=== PATIENT | female | born 1965 | race Caucasian/White ===

== ENCOUNTER 2017-01-13 17:37 | Inpatient (IN) | payer OTHER ==
[~2017-01-13] VITALS: Ht 165.1 cm; Wt 56.9 kg
[~2017-01-13 17:37] MED LIST: CEPH500C PO; HYDR-1231 PO; HYDR118S10 PO
[2017-01-13] MEDS ORDERED: NS IV 1000 ML 1,000 ML IV ONE (18:17)
[2017-01-13] MEDS ORDERED: ONDANSETRON 4 MG/2 ML (SDV) Z0FRAN IVP ONE ×2 (18:30→20:15)
[2017-01-13 18:32] LABS: BASOPHILS % (AUTO) 0 % (0-10); EOSINOPHILS % (AUTO) 0 % (0-10); LYMPHOCYTES # (AUTO) 1.1 X 10^3 (1.0-4.0); LYMPHOCYTES % (AUTO) 9 % (12-44); MEAN CORPUSCULAR HEMOGLOBIN 28 PG (25-34); MEAN CORPUSCULAR HGB CONC 34 G/DL (32-36); MEAN CORPUSCULAR VOLUME 83 FL (80-99); MONOCYTES # (AUTO) 0.5 X 10^3 (0.0-1.0); MONOCYTES % (AUTO) 4 % (0-12); NEUTROPHILS # (AUTO) 11.4 X 10^3 (1.8-7.8); NEUTROPHILS % (AUTO) 87 % (42-75); PLATELET COUNT 394 10^3/uL (130-400); RED BLOOD COUNT 4.61 10^6/uL (4.35-5.85); RED CELL DISTRIBUTION WIDTH 13.3 % (10.0-14.5); WHITE BLOOD COUNT 13.1 10^3/uL (4.3-11.0)
--- NOTE | 2017-01-13 18:35 | ED Abdominal Pain ---
General Chief Complaint: Abdominal/GI Problems Stated Complaint: NAUSEA/VOMITING Nursing Triage Note: AMBULATED TO ROOM 07 WITH COMPLAINTS OF EPIGASTRIC PAIN WITH N/V TODAY. STATES SHE HAD THIS ON SAT BUT IT WENT AWAY. Sepsis Screen: No Definite Risk Source of Information: Patient Exam Limitations: No Limitations History of Present Illness Time Seen By Provider: 18:10 Initial Comments Here with complaint of epigastric pain associated with multiple episodes of nausea and vomiting today. Had the same thing a few days ago and it went away. Does not seem to be associated with food. She is not amenable to eat or drink anything today. Denies diarrhea or dysuria. She has not had pain like this before. Complains of a pressure or fullness feeling. Timing/Duration: 12 Hours Severity/Quality: Moderate, Severe Location: Epigastric Radiation: No Radiation Activities at Onset: None Associated Symptoms: No Back Pain, No Chest Pain, No Fever/Chills, Nausea/ Vomiting, No Shortness of Air, No Swelling/Mass in Abdomen, No Weakness Allergies and Home Medications Allergies Coded Allergies: No Known Drug Allergies (Unverified , 06/09/12) Review of Systems Constitutional: see HPI, No chills, No fever EENTM: No Symptoms Reported Respiratory: Denies Cough, Denies Shortness of Air Cardiovascular: Denies Chest Pain, Denies Palpitations Gastrointestinal: Abdominal Pain, Denies Constipated, Denies Diarrhea, Nausea, Vomiting Genitourinary: No Symptoms Reported Musculoskeletal: no symptoms reported Skin: no symptoms reported Psychiatric/Neurological: No Symptoms Reported All Other Systems Reviewed Negative Unless Noted: Yes Past Xaxvxua-Kbexud-Osskfe Hx Patient Social History Alcohol Use: Denies Use Recreational Drug Use: No Smoking Status: Current Everyday Smoker Recent Foreign Travel: No Contact w/Someone Who Travel: No Recent Infectious Disease Expo: No Immunizations Up To Date Tetanus Booster (TDap): Less than 5yrs Seasonal Allergies Seasonal Allergies: Yes Surgeries HX Surgeries: Yes Surgeries: Section Respiratory Hx Respiratory Disorders: No Cardiovascular Hx Cardiac Disorders: No Neurological Hx Neurological Disorders: No Reproductive System Hx Reproductive Disorders: No [employer] History: Menopausal Genitourinary Hx Genitourinary Disorders: Yes Genitourinary Disorders: Kidney Stones Gastrointestinal Hx Gastrointestinal Disorders: No Musculoskeletal Hx Musculoskeletal Disorders: Yes (FX L PATELLA 01/15/14) Musculoskeletal Disorders: Fractures Endocrine Hx Endocrine Disorders: No HEENT HX ENT Disorders: No Cancer Hx Cancer: No Psychosocial Hx Psychiatric Problems: No Integumentary HX Skin/Integumentary Disorder: No Blood Transfusions Hx Blood Disorders: No Reviewed Nursing Assessment Reviewed/Agree w Nursing PMH: Yes Family Medical History Significant Family History: No Pertinent Family Hx Physical Exam Vital Signs VS - Last 72 Hours, by Label 01/13/17 17:45 Temp 98.0 Pulse 62 Resp 18 B/P (MAP) 131/87 Pulse Ox 98 Capillary Refill : Less Than 3 Seconds General Appearance: WD/WN, no apparent distress HEENT: PERRL/EOMI, pharynx normal Neck: full range of motion, supple Respiratory: lungs clear, normal breath sounds Cardiovascular: no murmur, bradycardia Peripheral Pulses: 2+ Dorsalis Pedis (R), 2+ Left Dors-Pedis (L), 2+ Radial Pulses (R), 2+ Radial Pulses (L) Gastrointestinal: non tender, soft Extremities: non-tender, normal inspection Back: normal inspection, no CVA tenderness, no vertebral tenderness Neurologic/Psychiatric: alert, oriented x 3 Skin: normal color, warm/dry Focused Exam Lactic Acid Level Laboratory Tests Test 01/13/17 21:00 Progress/Results/Core Measures Results/Orders Lab Results Laboratory Tests Test 01/13/17 18:00 01/13/17 18:25 01/13/17 21:00 Range/Units White Blood Count 13.1 H 4.3-11.0 10^3/uL Red Blood Count 4.61 4.35-5.85 10^6/uL Hemoglobin 13.0 11.5-16.0 G/DL Hematocrit 38 35-52 % Mean Corpuscular Volume 83 80-99 FL Mean Corpuscular Hemoglobin 28 25-34 PG Mean Corpuscular Hemoglobin Concent 34 32-36 G/DL Red Cell Distribution Width 13.3 10.0-14.5 % Platelet Count 394 130-400 10^3/uL Mean Platelet Volume 10.0 7.4-10.4 FL Neutrophils (%) (Auto) 87 H 42-75 % Lymphocytes (%) (Auto) 9 L 12-44 % Monocytes (%) (Auto) 4 0-12 % Eosinophils (%) (Auto) 0 0-10 % Basophils (%) (Auto) 0 0-10 % Neutrophils # (Auto) 11.4 H 1.8-7.8 X 10^3 Lymphocytes # (Auto) 1.1 1.0-4.0 X 10^3 Monocytes # (Auto) 0.5 0.0-1.0 X 10^3 Eosinophils # (Auto) 0.0 0.0-0.3 10^3/uL Basophils # (Auto) 0.0 0.0-0.1 10^3/uL Sodium Level 142 135-145 MMOL/L Potassium Level 3.7 3.6-5.0 MMOL/L Chloride Level 105 98-107 MMOL/L Carbon Dioxide Level 24 21-32 MMOL/L Anion Gap 13 5-14 MMOL/L Blood Urea Nitrogen 13 7-18 MG/DL Creatinine 0.73 0.60-1.30 MG/DL Estimat Glomerular Filtration Rate > 60 BUN/Creatinine Ratio 18 Glucose Level 128 H 70-105 MG/DL Calcium Level 9.8 8.5-10.1 MG/DL Total Bilirubin 0.3 0.1-1.0 MG/DL Aspartate Amino Transf (AST/SGOT) 19 5-34 U/L Alanine Aminotransferase (ALT/SGPT) 16 0-55 U/L Alkaline Phosphatase 105 40-136 U/L Troponin I < 0.30 <0.30 NG/ML Total Protein 7.7 6.4-8.2 G/DL Albumin 4.3 3.2-4.5 G/DL Amylase Level 93 25-125 U/L Lipase 18 8-78 U/L Urine Color YELLOW Urine Clarity SLIGHTLY CLOUDY Urine pH 6 5-9 Urine Specific Bradford 1.020 1.016-1.022 Urine Protein 2+ H NEGATIVE Urine Glucose (UA) NEGATIVE NEGATIVE Urine Ketones NEGATIVE NEGATIVE Urine Nitrite POSITIVE H NEGATIVE Urine Bilirubin NEGATIVE NEGATIVE Urine Urobilinogen NORMAL NORMAL MG/DL Urine Leukocyte Esterase 1+ H NEGATIVE Urine RBC (Auto) 2+ H NEGATIVE Urine RBC 2-5 H /HPF Urine WBC 25-50 H /HPF Urine Squamous Epithelial Cells 0-2 /HPF Urine Crystals NONE /LPF Urine Bacteria LARGE H /HPF Urine Casts NONE /LPF Urine Mucus NEGATIVE /LPF Urine Culture Indicated YES Urine Opiates Screen NEGATIVE NEGATIVE Urine Oxycodone Screen NEGATIVE NEGATIVE Urine Methadone Screen NEGATIVE NEGATIVE Urine Propoxyphene Screen NEGATIVE NEGATIVE Urine Barbiturates Screen NEGATIVE NEGATIVE Ur Tricyclic Antidepressants Screen NEGATIVE NEGATIVE Urine Phencyclidine Screen NEGATIVE NEGATIVE Urine Amphetamines Screen POSITIVE H NEGATIVE Urine Methamphetamines Screen NEGATIVE NEGATIVE Urine Benzodiazepines Screen POSITIVE H NEGATIVE Urine Cocaine Screen NEGATIVE NEGATIVE Urine Cannabinoids Screen NEGATIVE NEGATIVE My Orders Orders - BRENDA LAL MD Fentanyl Injection (Sublimaze Injection (01/13/17 19:00) Ct Abdomen/Pelvis W (01/13/17 18:56) Ekg Tracing (01/13/17 18:57) Monitor-Rhythm Ecg Trace Only (01/13/17 18:57) Chest 1 View, Ap/Pa Only (01/13/17 18:57) Troponin I (01/13/17 18:57) Iohexol Injection (Omnipaque 350 Mg/Ml 1 (01/13/17 19:00) Ns (Ivpb) (Sodium Chloride 0.9% Ivpb Bag (01/13/17 19:00) Us Gallbladder [id number] (01/13/17 19:26) Ondansetron Injection (Zofran Injectio (01/13/17 20:15) Lactic Acid Analyzer (01/13/17 20:54) Blood Culture (01/13/17 20:54) Morphine Injection (Morphine Injection (01/13/17 20:54) Piperacillin Sodium/Tazobactam (Zosyn Vi (01/13/17 21:00) Medications Given in ED Current Medications Medications Dose Ordered Sig/Al Route Start Time Stop Time Status Last Admin Dose Admin Fentanyl Citrate 50 mcg Q1H PRN IVP 01/13/17 19:00 01/13/17 18:54 50 MCG Iohexol 100 ml ONCE ONCE IV 01/13/17 19:00 01/13/17 19:01 UNV 01/13/17 19:13 100 ML Ondansetron HCl 4 mg ONCE ONCE IVP 01/13/17 18:30 01/13/17 18:31 DC 01/13/17 18:24 4 MG Ondansetron HCl 4 mg ONCE ONCE IVP 01/13/17 20:15 01/13/17 20:16 DC 01/13/17 20:22 4 MG Piperacillin Sod/ Tazobactam Sod 4.5 gm/Sodium Chloride 100 ml @ 200 mls/hr ONCE ONCE IV 01/13/17 21:00 01/13/17 21:29 01/13/17 21:13 200 MLS/HR Sodium Chloride 100 ml ONCE ONCE IV 01/13/17 19:00 01/13/17 19:01 UNV 01/13/17 19:13 80 ML Sodium Chloride 1,000 ml @ 0 mls/hr Q0M ONCE IV 01/13/17 18:17 01/13/17 18:21 DC 01/13/17 18:24 1,000 MLS/HR Vital Signs/I&O Vital Sign - Last 12Hours 01/13/17 17:45 Temp 98.0 Pulse 62 Resp 18 B/P (MAP) 131/87 Pulse Ox 98 Blood Pressure Mean: 102 Progress Note : Progress Note Seen and evaluated. IV, labs, EKG, chest x-ray, normal saline 1 L bolus, Zofran 4 mg IV and fentanyl 50 g IV ordered. Monitor patient. CT abdomen pelvis ordered as well as chest x-ray due to bradycardia. Monitor patient. 2047: Discussed case with Dr. Hogue after ultrasound and CT results confirm cholecystitis. Blood cultures and lactic acid ordered. Zosyn 4.5 g IV ordered. He will see the patient in the morning and take her to the OR as indicated. All of the findings and concerns were discussed with the patient and that she agrees with the plan. Admit, inpatient status. Morphine 4 mg IV for pain ordered. ECG Initial ECG Impression Date: Jan 13, 2017 Initial ECG Impression Time: 18:10 Initial ECG Rate: 43 Initial ECG Rhythm: S.Duran Initial ECG Comparisson: No Previous ECG Available Comment Sinus bradycardia with normal axis. No evidence of ST elevation IN. No previous available for comparison. Interpreted by me. Diagnostic Imaging Diagonstic Imaging: CT Plain Films/CT/US/NM/MRI: abdomen, pelvis Comments NAME: DWIGHT MULLINS [facility] REC#: [id number] PT STATUS: REG ER : 1965 PHYSICIAN: BRENDA LAL MD ADMIT DATE: 01/13/17/ER Signed Date of Exam: 01/13/17 CT ABDOMEN/PELVIS W PROCEDURE: CT abdomen and pelvis with contrast. TECHNIQUE: Multiple contiguous axial images were obtained through the abdomen and pelvis after administration of intravenous contrast. INDICATION: Epigastric pain with nausea and vomiting. COMPARISON: None. FINDINGS: The lung bases are clear. There is a small hiatal hernia. There is mild diffuse hepatic steatosis with focal sparing about the gallbladder fossa. The gallbladder is abnormal in appearance, mildly distended with mild diffuse gallbladder wall thickening. There are several stones in the gallbladder including a large 2.1 cm calcified stone. There is mild prominence of the extrahepatic biliary duct. The common bile duct at the level of the head of the pancreas measures 12 mm. No discrete mass or intraductal stone is appreciated. The pancreas appears unremarkable. The spleen and adrenal glands appear unremarkable. There is a small left renal cyst. The kidneys are otherwise unremarkable. Uterus and adnexa appear unremarkable. There is no evidence of appendicitis or bowel obstruction. There is no ascites or adenopathy. Abdominal aorta appears normal in caliber with minimal atherosclerosis. No acute osseous abnormality is suspected. IMPRESSION: 1. Cholelithiasis with findings suggestive of cholecystitis. There is also mild biliary dilatation, extrahepatic, without definitive ductal stone or mass. 2. Moderate diffuse hepatic steatosis with focal sparing about the gallbladder fossa. 3. Small hiatal hernia. Dictated by: Dictated on workstation # [id number] Dict: 01/13/171945 Trans: 01/13/171999 Interpreted by: SIDNEY ONOFRE DO Electronically signed by: SIDNEY ONOFRE DO 01/13/171999 Diagonstic Imaging: Xray Plain Films/CT/US/NM/MRI: chest Comments NAME: DWIGHT MULLINS [facility] REC#: [id number] PT STATUS: REG ER : 1965 PHYSICIAN: BRENDA LAL MD ADMIT DATE: 01/13/17/ER Signed Date of Exam: 01/13/17 CHEST 1 VIEW, AP/PA ONLY INDICATION: Epigastric pain with nausea and vomiting COMPARISON: 01/09/2014 FINDINGS: A single frontal view of the chest is obtained. Heart size is normal. The pulmonary vessels appear unremarkable. There is no pneumothorax, mediastinal widening or pleural fluid demonstrated. The lungs are clear. IMPRESSION: Negative chest Dictated by: Dictated on workstation # [id number] Dict: 01/13/171915 Trans: 01/13/171921 Interpreted by: SIDNEY ONOFRE DO Electronically signed by: SIDNEY ONOFRE DO 01/13/171921 Diagonstic Imaging: Ultrasound Plain Films/CT/US/NM/MRI: abdomen Comments VIA [facility]. [place], [place] NAME: DWIGHT MULLINS [facility] REC#: [id number] PT STATUS: REG ER : 1965 PHYSICIAN: BRENDA LAL MD ADMIT DATE: 01/13/17/ER Draft Date of Exam:01/13/17 US GALLBLADDER [id number] PROCEDURE: US gallbladder. TECHNIQUE: Multiple real-time grayscale images were obtained over the right upper quadrant in various projections. INDICATION: Abdominal pain with nausea and vomiting. COMPARISON: CT scan from earlier the same date. FINDINGS: The liver appears unremarkable. The gallbladder is distended, measuring about 10.2 cm in length. The gallbladder wall is thickened, measuring about 6 mm. There are numerous stones, the largest of which measures 3.4 cm in diameter. The gallbladder is also filled with echogenic debris. The visualized common bile duct measures about 5 mm. The dilatation seen on recent CT with more distal at the level of the head of the pancreas, not well demonstrated on this ultrasound. The pancreas is otherwise unremarkable. The right kidney measures 9.9 cm in length and appears normal. There is no ascites. There is a positive sonographic Fuentes sign. IMPRESSION: 1. Cholelithiasis with gallbladder wall thickening suggestive of cholecystitis, as suggested on recent CT. 2. No significant biliary dilatation is seen on this ultrasound. Dictated on workstation # [id number] Dict: 01/13/172028 Trans: 01/13/172033 [facility] [id number] Interpreted by: SIDNEY ONOFRE DO Electronically signed by: Departure Communication Time/Spoke to Admitting Phy: 20:48 Impression Impression: Primary Impression: Cholecystitis Disposition: ADMITTED INPATIENT Condition: Stable Decision to Admit Reason: Admit from ER (General) Decision to Admit/Date: Jan 13, 2017 Time/Decision to Admit Time: 20:48 Departure-Patient Inst. Referrals: NO,LOCAL PHYSICIAN (PCP/Family) Primary Care Physician BRENDA LAL MD Jan 13, 2017 18:35
[2017-01-13 18:38] LABS: ALANINE AMINOTRANSFERASE 16 U/L (0-55); ALBUMIN 4.3 G/DL (3.2-4.5); AMYLASE 93 U/L (25-125); ANION GAP 13 MMOL/L (5-14); ASPARTATE AMINO TRANSFERASE 19 U/L (5-34); BILIRUBIN,TOTAL 0.3 MG/DL (0.1-1.0); BLOOD UREA NITROGEN 13 MG/DL (7-18); BUN/CREATININE RATIO 18; CALCIUM 9.8 MG/DL (8.5-10.1); CARBON DIOXIDE 24 MMOL/L (21-32); CHLORIDE 105 MMOL/L (98-107); CREATININE SERUM 0.73 MG/DL (0.60-1.30); GFR ESTIMATED > 60; GLUCOSE 128 MG/DL (70-105); LIPASE 18 U/L (8-78); POTASSIUM 3.7 MMOL/L (3.6-5.0); SODIUM 142 MMOL/L (135-145); TOTAL PROTEIN 7.7 G/DL (6.4-8.2)
[2017-01-13 18:45] LABS: BILIRUBIN,URINE NEGATIVE (NEGATIVE); KETONES,URINE NEGATIVE (NEGATIVE); LEUKOCYTE ESTERASE ,URINE 1+ (NEGATIVE); NITRITE,URINE POSITIVE (NEGATIVE); PH,URINE 6 (5-9); PROTEIN,URINE 2+ (NEGATIVE); UROBILINOGEN,URINE NORMAL (NORMAL)
[2017-01-13 18:56] LABS: WBC,URINE 25-50 /HPF
[2017-01-13 18:57] LABS: SQUAMOUS EPITHELIAL CELL,UR 0-2 /HPF
[2017-01-13] MEDS ORDERED: NS 100 ML (IVPB) BAG IV ONE (19:00)
[2017-01-13] MEDS ORDERED: IOHEXOL 350 MG/ML 100 ML (OMNIPAQUE 350) VIAL IV ONE (19:00)
[2017-01-13] MEDS ORDERED: fentaNYL INJECTION 100 MCG/2 ML AMP IVP PRN (19:00)
--- NOTE | 2017-01-13 19:21 | Diagnostic Imaging Report ---
INDICATION: Epigastric pain with nausea and vomiting COMPARISON: 01/09/2014 FINDINGS: A single frontal view of the chest is obtained. Heart size is normal. The pulmonary vessels appear unremarkable. There is no pneumothorax, mediastinal widening or pleural fluid demonstrated. The lungs are clear. IMPRESSION: Negative chest Dictated by: Dictated on workstation # [id number]
--- NOTE | 2017-01-13 19:52 | Diagnostic Imaging Report ---
PROCEDURE: CT abdomen and pelvis with contrast. TECHNIQUE: Multiple contiguous axial images were obtained through the abdomen and pelvis after administration of intravenous contrast. INDICATION: Epigastric pain with nausea and vomiting. COMPARISON: None. FINDINGS: The lung bases are clear. There is a small hiatal hernia. There is mild diffuse hepatic steatosis with focal sparing about the gallbladder fossa. The gallbladder is abnormal in appearance, mildly distended with mild diffuse gallbladder wall thickening. There are several stones in the gallbladder including a large 2.1 cm calcified stone. There is mild prominence of the extrahepatic biliary duct. The common bile duct at the level of the head of the pancreas measures 12 mm. No discrete mass or intraductal stone is appreciated. The pancreas appears unremarkable. The spleen and adrenal glands appear unremarkable. There is a small left renal cyst. The kidneys are otherwise unremarkable. Uterus and adnexa appear unremarkable. There is no evidence of appendicitis or bowel obstruction. There is no ascites or adenopathy. Abdominal aorta appears normal in caliber with minimal atherosclerosis. No acute osseous abnormality is suspected. IMPRESSION: 1. Cholelithiasis with findings suggestive of cholecystitis. There is also mild biliary dilatation, extrahepatic, without definitive ductal stone or mass. 2. Moderate diffuse hepatic steatosis with focal sparing about the gallbladder fossa. 3. Small hiatal hernia. Dictated by: Dictated on workstation # [id number]
--- NOTE | 2017-01-13 20:35 | Diagnostic Imaging Report ---
PROCEDURE: US gallbladder. TECHNIQUE: Multiple real-time grayscale images were obtained over the right upper quadrant in various projections. INDICATION: Abdominal pain with nausea and vomiting. COMPARISON: CT scan from earlier the same date. FINDINGS: The liver appears unremarkable. The gallbladder is distended, measuring about 10.2 cm in length. The gallbladder wall is thickened, measuring about 6 mm. There are numerous stones, the largest of which measures 3.4 cm in diameter. The gallbladder is also filled with echogenic debris. The visualized common bile duct measures about 5 mm. The dilatation seen on recent CT with more distal at the level of the head of the pancreas, not well demonstrated on this ultrasound. The pancreas is otherwise unremarkable. The right kidney measures 9.9 cm in length and appears normal. There is no ascites. There is a positive sonographic Fuentes sign. IMPRESSION: 1. Cholelithiasis with gallbladder wall thickening suggestive of cholecystitis, as suggested on recent CT. 2. No significant biliary dilatation is seen on this ultrasound. Dictated by: Dictated on workstation # [id number]
[2017-01-13] MEDS ORDERED: morphine INJ 10 MG/ML 1ML (SYR OR VIAL) IVP STA (20:54)
[2017-01-13] MEDS ORDERED: PIPERACILLIN SODIUM/TAZOBACTAM 4.5 GM in NS (IVPB) 100 ML IV ONE (21:00)
[2017-01-13] MEDS ORDERED: NS IV 1000 ML 1,000 ML ONE (22:08)
[2017-01-13] MEDS ORDERED: CATHETER FLUSH 10 ML SYR IV PRN (22:30)
[2017-01-13] MEDS ORDERED: ONDANSETRON 4 MG/2 ML (SDV) Z0FRAN IV PRN (22:30)
[2017-01-13] MEDS: NS IV 1000 ML 1,000 ML IV SCH (22:31)
[2017-01-14] VITALS: BP 155/71
[2017-01-14] MEDS: morphine INJ 4 MG/ML 1 ML (VIAL/SYRINGE) IV PRN ×4 (03:24→15:12)
[2017-01-14] MEDS: PIPERACILLIN/TAZOBACTAM 4.5 GM/NS100 ML IVPB IV SCH ×4 (03:24→10:40)
[2017-01-14 04:00] VITALS: BP 127/60
[2017-01-14 05:18] LABS: BASOPHILS % (AUTO) 0 % (0-10); EOSINOPHILS # (AUTO) 0.1 10^3/uL (0.0-0.3); EOSINOPHILS % (AUTO) 0 % (0-10); LYMPHOCYTES # (AUTO) 1.2 X 10^3 (1.0-4.0); LYMPHOCYTES % (AUTO) 8 % (12-44); MEAN CORPUSCULAR HEMOGLOBIN 28 PG (25-34); MEAN CORPUSCULAR HGB CONC 33 G/DL (32-36); MEAN CORPUSCULAR VOLUME 84 FL (80-99); MEAN PLATELET VOLUME 9.7 FL (7.4-10.4); MONOCYTES # (AUTO) 1.3 X 10^3 (0.0-1.0); MONOCYTES % (AUTO) 9 % (0-12); NEUTROPHILS # (AUTO) 12.3 X 10^3 (1.8-7.8); NEUTROPHILS % (AUTO) 83 % (42-75); PLATELET COUNT 364 10^3/uL (130-400); RED BLOOD COUNT 4.43 10^6/uL (4.35-5.85); RED CELL DISTRIBUTION WIDTH 13.4 % (10.0-14.5); WHITE BLOOD COUNT 14.9 10^3/uL (4.3-11.0)
[2017-01-14] MEDS: CATHETER FLUSH 10 ML SYR IV SCH ×2 (05:38→14:46)
[2017-01-14] MEDS: NS IV 1000 ML 1,000 ML IV SCH ×2 (05:38→10:39)
[2017-01-14 05:47] LABS: ALANINE AMINOTRANSFERASE 18 U/L (0-55); ALBUMIN 3.7 G/DL (3.2-4.5); ANION GAP 11 MMOL/L (5-14); ASPARTATE AMINO TRANSFERASE 19 U/L (5-34); BILIRUBIN,TOTAL 0.5 MG/DL (0.1-1.0); BLOOD UREA NITROGEN 8 MG/DL (7-18); BUN/CREATININE RATIO 11; CALCIUM 8.6 MG/DL (8.5-10.1); CARBON DIOXIDE 22 MMOL/L (21-32); CHLORIDE 107 MMOL/L (98-107); CREATININE SERUM 0.71 MG/DL (0.60-1.30); GFR ESTIMATED > 60; GLUCOSE 118 MG/DL (70-105); POTASSIUM 3.6 MMOL/L (3.6-5.0); SODIUM 140 MMOL/L (135-145); TOTAL PROTEIN 6.4 G/DL (6.4-8.2)
[2017-01-14 05:50] LABS: BAND NEUTROPHILS 0 %; BASOPHILS % (MANUAL) 0 %; EOSINOPHILS % (MANUAL) 1 %; LYMPHOCYTES % (MANUAL) 8 %; NEUTROPHILS % (MANUAL) 86 %
[2017-01-14 08:00] VITALS: BP 130/62
[2017-01-14] MEDS ORDERED: LACTATED RINGERS 1,000 ML IV ONE (10:23)
[2017-01-14] MEDS ORDERED: SEVOFLURANE (ULTANE) 15 ML INHAL SOLN ONE ×9 (10:23→13:27)
[2017-01-14] MEDS ORDERED: HURRICAINE EXT TUBE (BENZOCAINE) ONE (10:23)
[2017-01-14] MEDS ORDERED: proPOfol 200 MG/20 ML (DIPRIVAN) VIAL IV ONE (10:23)
[2017-01-14] MEDS ORDERED: DEXAMETHASONE PF 10 MG/ML (DECADRON) VIAL ONE (10:23)
[2017-01-14] MEDS ORDERED: LIDOCAINE PF 2% 5 ML (XYLOCAINE) VIAL ONE (10:23)
[2017-01-14] MEDS ORDERED: fentaNYL INJECTION 100 MCG/2 ML AMP ONE (10:24)
[2017-01-14] MEDS ORDERED: MIDAZOLAM 2 MG/2 ML (VERSED) VIAL ONE (10:24)
[2017-01-14] MEDS ORDERED: ATRACURIUM 50 MG/5 ML (TRACRIUM) IV ONE (10:29)
--- NOTE | 2017-01-14 10:32 | History & Physical-Surgical ---
History of Present Illness History of Present Illness Reason for visit/HPI Pt is a 51 yo female who presented to the ER with complaint of epigastric pain associated with multiple episodes of nausea and vomiting. Had the same thing a few days ago and it went away; thought it might be flu or something "so I blew it off". Does not seem to be associated with food. She is not amenable to eat or drink anything today. Denies diarrhea or dysuria. She has not had pain like this before. Complains of a pressure or fullness feeling. She rated the pain as 10 out of 10 last night, only helped with pain meds today. Timing/Duration: 12 Hours prior to coming into ER Severity/Quality: Severe Location: Epigastric and now more RUQ Radiation: No Radiation Activities at Onset: None Associated Symptoms: No Back Pain, No Chest Pain, No Fever/Chills, No Shortness of Air, No Swelling/Mass in Abdomen, No Weakness Date of Admission Jan 13, 2017 at 21:06 Time Seen by Provider: 10:01 I consulted on this patient on 01/14/17 10:27 Attending Physician Mateus Hogue DO Admitting Physician Cindy,Local Physician Consult Allergies and Home Medications Allergies Coded Allergies: No Known Drug Allergies (Unverified , 06/09/12) Home Medications No Active Prescriptions or Reported Meds Past Izmefkw-Aeatol-Sjqmhr Hx Patient Social History Alcohol Use: Denies Use Recreational Drug Use: No Smoking Status: Current Everyday Smoker Recent Foreign Travel: No Contact w/Someone Who Travel: No Recent Infectious Disease Expo: No Physical Abuse Screen: No Sexual Abuse: No Immunizations Up To Date Tetanus Booster (TDap): Less than 5yrs Seasonal Allergies Seasonal Allergies: Yes Surgeries HX Surgeries: Yes Surgeries: Section Respiratory Hx Respiratory Disorders: No Cardiovascular Hx Cardiac Disorders: No Neurological Hx Neurological Disorders: No Reproductive System Hx Reproductive Disorders: No PROFESSIONAL DRIVER History: Menopausal Genitourinary Hx Genitourinary Disorders: Yes Genitourinary Disorders: Kidney Stones Gastrointestinal Hx Gastrointestinal Disorders: No Musculoskeletal Hx Musculoskeletal Disorders: Yes (FX L PATELLA 01/15/14) Musculoskeletal Disorders: Fractures Endocrine Hx Endocrine Disorders: No HEENT HX ENT Disorders: No Cancer Hx Cancer: No Psychosocial Hx Psychiatric Problems: No Integumentary HX Skin/Integumentary Disorder: No Blood Transfusions Hx Blood Disorders: No Reviewed Nursing Assessment Reviewed/Agree w Nursing PMH: Yes Family Medical History Significant Family History: No Pertinent Family Hx, CAD Over 55 Years Old ( mother at 63 of massive PR), Diabetes (father) Constitutional: No chills, No diaphoresis, No malaise, No weight loss EENTM: No blurred vision, No epistaxis, No mouth swelling, No throat swelling Respiratory: No cough, No dyspnea on exertion, No hemoptysis Cardiovascular: No chest pain, No edema, No palpitations Gastrointestinal: RUQ, nausea, vomiting Genitourinary: No dysuria, No frequency, No hematuria : No Musculoskeletal: No back pain, No joint swelling, No muscle stiffness Skin: No change in color, No change in hair/nails Psychiatric/Neurological: Denies Anxiety, Denies Depressed, Denies Emotional Problems, Denies Tingling, Denies Tremors, Denies Weakness Other denies any chronic illnesses, no history of abnormal bleeding, no swollen nodes , denies any heat or cold intolerance Physical Exam Vital Signs Vital Sign - Last 12Hours 01/13/17 01/13/17 17:45 21:34 Temp 98.0 Pulse 62 Resp 18 B/P (MAP) 131/87 Pulse Ox 98 O2 Delivery Room Air Capillary Refill : Less Than 3 Seconds General Appearance: WD/WN, Moderate Distress, Thin Eyes: Bilateral Eye EOMI, Bilateral Eye PERRL HEENT: Pharynx Normal, No Pale Conjunctivae (L), No Pale Conjunctivae (R), No Scleral Icterus (L), No Scleral Icterus (R) Neck: Full Range of Motion, Non Tender, Supple, No Thyromegaly Respiratory: Lungs Clear, Normal Breath Sounds, No Accessory Muscle Use, No Respiratory Distress Cardiovascular: Regular Rate, Rhythm, No Edema, No Murmur Gastrointestinal: No Organomegaly, Soft, Guarding (upper quadrants), No Rebound Rectal: Deferred Back: No CVA Tenderness, No Vertebral Tenderness Extremity: Normal Capillary Refill, Normal Inspection, Normal Range of Motion, Non Tender, No Calf Tenderness, No Pedal Edema Neurologic/Psychiatric: Alert, Oriented x3, No Motor/Sensory Deficits, Normal Mood/Affect, tire changer II-XII Norm as Tested Skin: Normal Color, Warm/Dry Lymphatic: No Adenopathy (neck, axilla or groin) Data Review Labs Laboratory Tests 01/13/17 18:00: White Blood Count 13.1H, Red Blood Count 4.61, Hemoglobin 13.0, Hematocrit 38, Mean Corpuscular Volume 83, Mean Corpuscular Hemoglobin 28, Mean Corpuscular Hemoglobin Concent 34, Red Cell Distribution Width 13.3, Platelet Count 394, Mean Platelet Volume 10.0, Neutrophils (%) (Auto) 87H, Lymphocytes (%) (Auto) 9L , Monocytes (%) (Auto) 4, Eosinophils (%) (Auto) 0, Basophils (%) (Auto) 0, Neutrophils # (Auto) 11.4H, Lymphocytes # (Auto) 1.1, Monocytes # (Auto) 0.5, Eosinophils # (Auto) 0.0, Basophils # (Auto) 0.0, Sodium Level 142, Potassium Level 3.7, Chloride Level 105, Carbon Dioxide Level 24, Anion Gap 13, Blood Urea Nitrogen 13, Creatinine 0.73, Estimat Glomerular Filtration Rate > 60, BUN/ Creatinine Ratio 18, Glucose Level 128H, Calcium Level 9.8, Total Bilirubin 0.3 , Aspartate Amino Transf (AST/SGOT) 19, Alanine Aminotransferase (ALT/SGPT) 16, Alkaline Phosphatase 105, Troponin I < 0.30, Total Protein 7.7, Albumin 4.3, Amylase Level 93, Lipase 18 01/13/17 18:25: Urine Color YELLOW, Urine Clarity SLIGHTLY CLOUDY, Urine pH 6, Urine Specific [place] 1.020, Urine Protein 2+H, Urine Glucose (UA) NEGATIVE, Urine Ketones NEGATIVE, Urine Nitrite POSITIVEH, Urine Bilirubin NEGATIVE, Urine Urobilinogen NORMAL, Urine Leukocyte Esterase 1+H, Urine RBC (Auto) 2+H, Urine RBC 2-5H, Urine WBC 25-50H, Urine Squamous Epithelial Cells 0-2, Urine Crystals NONE, Urine Bacteria LARGEH, Urine Casts NONE, Urine Mucus NEGATIVE, Urine Culture Indicated YES, Urine Opiates Screen NEGATIVE, Urine Oxycodone Screen NEGATIVE, Urine Methadone Screen NEGATIVE, Urine Propoxyphene Screen NEGATIVE, Urine Barbiturates Screen NEGATIVE, Ur Tricyclic Antidepressants Screen NEGATIVE, Urine Phencyclidine Screen NEGATIVE, Urine Amphetamines Screen POSITIVEH, Urine Methamphetamines Screen NEGATIVE, Urine Benzodiazepines Screen POSITIVEH, Urine Cocaine Screen NEGATIVE, Urine Cannabinoids Screen NEGATIVE 01/13/17 21:00: Lactic Acid Level 1.41 01/14/17 05:00: White Blood Count 14.9H, Red Blood Count 4.43, Hemoglobin 12.3, Hematocrit 37, Mean Corpuscular Volume 84, Mean Corpuscular Hemoglobin 28, Mean Corpuscular Hemoglobin Concent 33, Red Cell Distribution Width 13.4, Platelet Count 364, Mean Platelet Volume 9.7, Neutrophils (%) (Auto) 83H, Lymphocytes (%) (Auto) 8L , Monocytes (%) (Auto) 9, Eosinophils (%) (Auto) 0, Basophils (%) (Auto) 0, Neutrophils # (Auto) 12.3H, Lymphocytes # (Auto) 1.2, Monocytes # (Auto) 1.3H, Eosinophils # (Auto) 0.1, Basophils # (Auto) 0.0, Sodium Level 140, Potassium Level 3.6, Chloride Level 107, Carbon Dioxide Level 22, Anion Gap 11, Blood Urea Nitrogen 8, Creatinine 0.71, Estimat Glomerular Filtration Rate > 60, BUN/ Creatinine Ratio 11, Glucose Level 118H, Calcium Level 8.6, Total Bilirubin 0.5 , Aspartate Amino Transf (AST/SGOT) 19, Alanine Aminotransferase (ALT/SGPT) 18, Alkaline Phosphatase 100, Total Protein 6.4, Albumin 3.7, Neutrophils % (Manual ) 86, Lymphocytes % (Manual) 8, Monocytes % (Manual) 5, Eosinophils % (Manual) 1 , Basophils % (Manual) 0, Band Neutrophils 0, Blood Morphology Comment NORMAL Microbiology 01/13/17 Urine Culture - Preliminary, Resulted Escherichia Coli Assessment/Plan Assessment/Plan Assessment/Plan Acute Cholecystitis with Cholelithiasis NPO, IV fluids, IV abx, pain meds. To OR for laparoscopic cholecystectomy possible cholangiogram, possible open. Discussed risks and complications, including but not limited to; pain, bleeding, infection, scar, damage to bowel or bile ducts and need for further procedure. All questions answered to her satisfaction. Clinical Quality Measures DVT/VTE Risk/Contraindication: Risk Factor Score Per Nursin RFS Level Per Nursing on Admit: 4+=Very High MATEUS HOGUE DO Jan 14, 2017 10:32
[2017-01-14] MEDS ORDERED: LIDOCAINE/EPI 1%-1:200,000 (XYLOCAINE) 30 ML VIAL ONE (11:01)
[2017-01-14] MEDS: LACTATED RINGERS 1,000 ML IV SCH ×3 (11:18→14:27)
[2017-01-14] MEDS ORDERED: GLYCOPYRROLATE 0.2 MG/ML (ROBINUL) 2 ML VIAL ONE (13:22)
--- NOTE | 2017-01-14 13:34 | Diagnostic Imaging Report ---
INDICATION: Right upper quadrant pain. DISCUSSION: Fluoroscopic support was provided during intraoperative cholangiogram. The common bile duct is dilated. There is progression of contrast into the duodenum. Please see the operative report for full detail. FLUOROSCOPY TIME: 18 seconds. CONTRAST: 6 mL Omnipaque 300. IMPRESSION: 1. Intraoperative cholangiogram. Dictated by: Dictated on workstation # [id number]
[2017-01-14] MEDS ORDERED: morphine INJ 10 MG/ML 1ML (SYR OR VIAL) ONE (13:39)
--- NOTE | 2017-01-14 13:45 | Progress Note-Post Operative ---
Post-Operative Progess Note Surgeon (s)/Tooling Engineering Tech (s) Surgeon FALLON ALCALA DO Tooling Engineering Tech: Zeyad Pre-Operative Diagnosis acute isabel/isabel Post-Operative Diagnosis same Procedure & Operative Findings Date of Procedure 01/14/17 Procedure Performed/Findings Lap isabel with IOC Anesthesia Type GET Estimated Blood Loss Estimated blood loss (mL): less than 10ml Specimens/Packing Specimens Removed GB and contents FALLON ALCALA DO Jan 14, 2017 13:45
[2017-01-14] MEDS ORDERED: HYDR-3820 PO (13:46)
--- NOTE | 2017-01-14 13:48 | Discharge Inst-Surgical ---
Discharge Inst-Surgical Depart Medication/Instructions New, Converted or Re-Newed RX: RX Given to Pt/Family Patient Instructions Follow up Appt: Make appointment for 1 week, . Instructions: No lifting greater than 10 pounds. No strenuous activity. May shower in 24 hours, no tub bath or soaking. Use incentive spirometer at home as directed. No Smoking Skin/Wound Care: May remove bandages. Dermabond will fall off on its own in 1-2 weeks. Symptoms to Report: Appetite Changes, Extremity Discoloration, Numbness/Tingling, Swelling Increased , Bleeding Excessive, Eyesight Changes, Pain Increased, Urine Color Change, Constipation(Persistent), Fever over 101 degree F, Pain/Pressure in chest, Urinating Difficulty, Cough Up/Vomit Blood, Heart Beat Irreg/Pounding, Pain/ Pressure in jaw, Vaginal Bleeding Increase, Cramps in feet or legs, Lightheadedness, Pain/Pressure in shoulder, Diarrhea(Persistent), Memory Changes Suddenly, Questions/Concerns, Weight gain consecutive days, Dizziness/ Fainting, Nausea/Vomiting, Shortness of Breath, Weight gain over 2 pounds. If eyes or skin turn yellow notify physician. If questions or concerns contact your physician Or seek help at emergency department. Activity Activity as Tolerated: Yes Activity Instructions: Avoid Pulling & Pushing, Avoid Stress to Incision Driving Instructions: No Driving/Refer to Diet Discharge Diet: Avoid Fatty Foods, Low Fat/Low Cholesterol Diet After 24 Hours: Clear Liquid if Nauseous If Any Problems/Questions/Issu: Contact Your Physician, Go to Emergency Room Skin/Wound Care Infection Signs and Symptoms: Increased Redness, Foul Odor of Wound, Increased Drainage, Skin Itchy or Has a Rash, Increased Swelling, Temperature Above 101 F Wound Care Comment: heating pad to neck or shoulder tonight for pain Bathing Instructions: Shower Stitches/Megan/Dermabond Dis: Dermabond Ice Pack: Ice On and Off Site FALLON ALCALA DO Jan 14, 2017 13:48
[2017-01-14] MEDS ORDERED: morphine INJ 10 MG/ML 1ML (SYR OR VIAL) IVP PRN (14:30)
[2017-01-14 15:56] VITALS: BP 115/57
[2017-01-14 16:50] VITALS: BP 115/57
--- NOTE | 2017-01-15 07:15 | OPERATIVE REPORT ---
DATE OF SERVICE: 01/14/2017 PREOPERATIVE DIAGNOSIS: Acute cholecystitis, cholelithiasis. POSTOPERATIVE DIAGNOSIS: Acute cholecystitis, cholelithiasis. PROCEDURE: Laparoscopic cholecystectomy with intraoperative cholangiogram. SURGEON: Dr. Hogue. MEAT CUTTER APPRENTICE: Dr. Jeffers. ANESTHESIA: General endotracheal tube. SPECIMEN: Gallbladder and contents. BLOOD LOSS: Less than 10 mL. FLUIDS: Per anesthesia. POSTOP CONDITION: Stable. INDICATION FOR PROCEDURE: The patient is a 51-year-old female who was admitted last night with abdominal pain, elevated white count and ultrasound and I believe CAT scan which showed acute cholecystitis, taken to the OR today. FINDINGS: The patient had a very bad acute cholecystitis. She had a very thickened gallbladder with a lot of edema and adhesions. This case took about at least 2 to 3 times as long as normal because of the amount of inflammation surrounding the duct and artery. PROCEDURE NOTE: After informed consent was obtained, the patient was brought to the operating room. She was placed on the table in supine position. She was sterilely prepped and draped in normal fashion. Local lidocaine was used to infiltrate the skin on to the umbilicus. Made an incision with a #11 blade, carried down through the skin into the subcutaneous tissue, then debrided down to the subcutaneous tissue with Bovie cautery down to the fascia. Fascia incised with Bovie electrocautery and then bluntly entered the abdomen, swept a finger around. Placed a 0 oblique 0 [id number]-hiblg suture and placed an 11 mm trocar port under direct visualization. Created a pneumoperitoneum and then placed 3 more ports in a normal fashion using local lidocaine, 11 blade for stab incision and the VersaStep system, all done under direct visualization, one subxiphoid and 2 in the right upper quadrant. Upon entry, noted a very thickened gallbladder wall, edematous, a very hard time grasping it, able to grasp at the fundus, taking superior direction, moved some adhesions away from the distal portion of the gallbladder carefully with blunt dissection as well as Bovie electrocautery and then able to grasp down at the Eliazar's pouch and pulling in from a lateral direction. It was very thickened. Took a long time, we had to go very slowly and make sure we did not get into anything we did not want to get into. Took extra time just to carefully and slowly dissect out the cystic duct and cystic artery. A lot of inflammatory tissue around this area. Finally able to get around the cystic duct and the cystic artery. Placed 1 clip distally and 1 clip proximally in the cystic artery, and then encountered another branch to the cystic artery in front. This was clipped and then able to finally dissect out and visualize the cystic duct. Placed 1 clip distally, cut this skilled nursing through Metzenbaum scissors and then shot a cholangiogram. Good spillage of dye down the cystic duct into the common bile duct and then down into the small intestine as well as up in the common hepatic duct. The common bile duct and the common hepatic duct were very dilated but did not see any stones in here and the contrast did go in the small intestine. Removed the cholangiogram catheter, placed 2 clips proximally on the cystic duct and cut the cystic duct and cystic artery with Metzenbaum scissors. Starting taking the gallbladder from the bed of the liver. It was very thickened and edematous, it was very hard to take this off, took this off slowly and then found it was very intrahepatic as well. Had to carefully go through this. Finally able to get this totally off and then placed the gallbladder in the bag that was placed through the port and then pulled this out through the infraumbilical incision. Placed the port back in the abdomen. Then, copiously irrigated with normal saline. Hemostasis was obtained using Bovie electrocautery. There was no bleeding from bed of the liver, suctioned out all the fluid that we used to irrigate and then the patient had been reverse Trendelenburg rotated left. She was then placed supine and then removed all ports under direct visualization. Allowed the pneumoperitoneum to escape as well as suctioned out. When pulling the stone out of the infraumbilical incision, made the fascial defect a little bit deeper, so we had to use 2-0 Vicryl, azhnfj-rj-tkura sutures to close this. Copiously irrigated all incisions with normal saline. Then closed the 3 small 5 mm incisions with a single interrupted 4-0 undyed Monocryl subcuticular stitch. Closed the infraumbilical incision with 3 interrupted 4-0 undyed Monocryl subcuticular stitches. The area was cleaned and dried and Dermabond placed as well as the dressing and patient then transferred to recovery room in stable condition. Sponge, instrument, and needle counts correct at the end of the case. Dr. Jeffers assisted in his case. He placed some of the ports, made incisions, helped hold the gall bladder and identified anatomy in this very difficult and extended case. Job ID: [id number] DocumentID: [id number] Dictated Date: 01/14/2017 16:59:00 Steaming Machine Operator Date: 01/15/2017 04:52:15 Dictated By: FALLON HOGUE DO
== END 2017-01-14 17:00 | disposition home or self-care (01) | DRG 419 ==
LOC: EDUNIT# 17:37 → ER 17:40 → 4TH 21:06
PROVIDERS: ADMIT Surgery; ATTEND Surgery
PROC: BF101ZZ Fluoroscopy of Bile Ducts using Low Osmolar Contrast (ICD-10-PCS; 2017-01-14)
PROC: 0FT44ZZ Resection of Gallbladder, Percutaneous Endoscopic Approach (ICD-10-PCS; principal; 2017-01-14 11:47)
DX: K80.00 Calculus of gallbladder with acute cholecystitis without obstruction (principal); F17.210 Nicotine dependence, cigarettes, uncomplicated
CPT/HCPCS: 36415; 71010; 74177; 76705; 80053; 80306; 81000; 82150; 83605; 83690; 84484; 84703; 85007; 85025; 85027; 87040; 87081; 87088; 87186; 93005

== ENCOUNTER 2019-01-04 14:06 | Emergency (ER) | payer SELFPAY ==
[~2019-01-04] VITALS: Ht 167.6 cm; Wt 63.5 kg
[~2019-01-04 14:06] MED LIST changes: +HYDR-3820 PO
[2019-01-04] MEDS ORDERED: IBUP-1780 PO (14:18)
[2019-01-04 15:00] VITALS: BP 147/75
--- NOTE | 2019-01-04 15:01 | Diagnostic Imaging Report ---
EXAMINATION: Right ankle, 3 views. INDICATION: Right ankle pain and swelling. COMPARISON: None. FINDINGS: No fracture or acute osseous abnormality. Bony alignment is maintained. Intact ankle mortise, including the medial and lateral clear space. No significant arthritic change is noted. Mild soft tissue swelling is noted in the ankle. IMPRESSION: No acute fracture or dislocation. Dictated by: Dictated on workstation # [id number]
--- NOTE | 2019-01-04 15:11 | ED Lower Extremity ---
General Chief Complaint: Lower Extremity Stated Complaint: R ANKLE PAIN Nursing Triage Note: AMBULATED TO TRIAGE WITH RIGHT ANKLE PAIN X4 DAYS. DENIES INJURY. Nursing Sepsis Screen: No Definite Risk Source: patient Exam Limitations: no limitations History of Present Illness Date Seen by Provider: Jan 04, 2019 Time Seen by Provider: 14:20 Initial Comments 53-year-old female who presents to the emergency room with complaints of right ankle pain for the past 4 days. She reports that she has been moving and is unsure of if she twisted the ankle or not. There is mild swelling to the right ankle. Mild ecchymosis noted. Onset: just prior to arrival Pain/Injury Location: right ankle Modifying Factors: Worse With Movement Allergies and Home Medications Allergies Coded Allergies: No Known Drug Allergies (Unverified , 06/09/12) Home Medications Ibuprofen 800 Mg Tablet, 800 MG PO Q8H PRN for PAIN-MILD, (Reported) Patient Home Medication List Home Medication List Reviewed: Yes Review of Systems Constitutional: see HPI; No chills, No fever Musculoskeletal: see HPI, joint pain (right ankle) All Other Systems Reviewed Negative Unless Noted: Yes Past Thlnalq-Kiipof-Lxsxys Hx Past Med/Social Hx: Reviewed Nursing Past Med/Soc Hx Patient Social History Alcohol Use: Denies Use Recreational Drug Use: No Smoking Status: Current Everyday Smoker Recent Foreign Travel: No Contact w/Someone Who Travel: No Recent Infectious Disease Expo: No Immunizations Up To Date Tetanus Booster (TDap): Less than 5yrs Seasonal Allergies Seasonal Allergies: Yes Past Medical History Surgeries: Yes Section Respiratory: No Cardiac: No Neurological: No Reproductive Disorders: No DATABASE ADMINISTRATOR History: Menopausal Genitourinary: Yes Kidney Stones Gastrointestinal: No Musculoskeletal: Yes (FX L PATELLA 01/15/14) Fractures Endocrine: No HEENT: No Cancer: No Psychosocial: No Integumentary: No Blood Disorders: No Family Medical History Reviewed Nursing Family Hx No Pertinent Family Hx, CAD Over 55 Years Old, Diabetes Physical Exam Vital Signs Vital Signs - First Documented 01/04/19 14:15 Temp 98.4 Pulse 83 Resp 16 B/P (MAP) 147/75 (99) Pulse Ox 96 O2 Delivery Room Air Capillary Refill : Less Than 3 Seconds Height, Weight, BMI Height: 5'6.00" Weight: 140lbs. 8.0oz. 63.509567ms; 20.9 BMI Method:Stated General Appearance: WD/WN, no apparent distress Cardiovascular: normal peripheral pulses, regular rate, rhythm, no edema, no gallop, no JVD, no murmur Respiratory: chest non-tender, lungs clear, normal breath sounds, no respiratory distress, no accessory muscle use Gastrointestinal: normal bowel sounds, non tender, soft, no organomegaly, no pulsatile mass Ankles: right ankle ecchymosis, right ankle pain, right ankle swelling Neurologic/Tendon: normal sensation, normal motor functions, normal tendon functions, responds to pain, no evidence tendon injury Neurologic/Psychiatric: alert, normal mood/affect, oriented x 3 Skin: normal color, warm/dry Progress/Results/Core Measures Results/Orders My Orders Orders - JOSI LIMA Ankle, Right, 3 Views (01/04/19 14:27) Vital Signs/I&O 01/04/19 01/04/19 14:15 15:00 Temp 98.4 98.4 Pulse 83 83 Resp 16 16 B/P (MAP) 147/75 (99) 147/75 (99) Pulse Ox 96 96 O2 Delivery Room Air Blood Pressure Mean: 99 Diagnostic Imaging Diagonstic Imaging: Xray Plain Films/CT/US/NM/MRI: ankle Comments [facility], [place] NAME: [facility] REC#: [id number] PT STATUS: REG ER : 1965 PHYSICIAN: JOSI LIMA ADMIT DATE: 01/04/19/ER Draft Date of Exam:01/04/19 ANKLE, RIGHT, 3 VIEWS EXAMINATION: Right ankle, 3 views. INDICATION: Right ankle pain and swelling. COMPARISON: None. FINDINGS: No fracture or acute osseous abnormality. Bony alignment is maintained. Intact ankle mortise, including the medial and lateral clear space. No significant arthritic change is noted. Mild soft tissue swelling is noted in the ankle. IMPRESSION: No acute fracture or dislocation. Dictated on workstation # [id number] Dict: 01/04/19 1450 Trans: 01/04/19 1500 [facility] [id number] Interpreted by: KILLIAN HEDRICK DO Electronically signed by: Reviewed: Reviewed by Me Departure Impression Primary Impression: Left ankle pain Disposition: 01 HOME, SELF-CARE Condition: Stable/Unchanged Departure-Patient Inst. Decision time for Depature: 15:10 Referrals: NO,LOCAL PHYSICIAN (PCP/Family) Primary Care Physician Patient Instructions: Ankle Sprain (DC) Add. Discharge Instructions: You may use ibuprofen and Tylenol as directed by the bottle for pain relief. Ice to the sore areas at 20 minute intervals. Wear the Heath bandage as needed for comfort. Elevate the ankle as much as possible. Avoid activities that put strain on the ankle. Follow-up with her primary care provider within 1 week if no improvement. Return back to the emergency room for worsening symptoms or concerns as needed. All discharge instructions reviewed with patient and/or family. Voiced understanding. JOSI LIMA Jan 04, 2019 15:11
== END 2019-01-04 15:15 | disposition home or self-care (01) ==
LOC: EDUNIT# 14:06 → ER 14:08
DX: M25.571 Pain in right ankle and joints of right foot (principal); F17.200 Nicotine dependence, unspecified, uncomplicated; Z87.442 Personal history of urinary calculi; Z98.890 Other specified postprocedural states; X50.1XXA Overexertion from prolonged static or awkward postures, initial encounter
CPT/HCPCS: 73610

== ENCOUNTER 2022-02-23 19:27 | Emergency (ER) | payer SELFPAY ==
[~2022-02-23] VITALS: Ht 167.7 cm; Wt 68.0 kg
[~2022-02-23 19:27] MED LIST changes: +ACHYD1T PO; -HYDR-3820 PO; +IBUP-1780 PO
--- NOTE | 2022-02-23 19:52 | ED General ---
General Chief Complaint: COVID19 Suspect/Confirmed Stated Complaint: CHANDRA,N/V,DIARRHEA,FEVER Source of Information: Patient Exam Limitations: No Limitations History of Present Illness Date Seen by Provider: Feb 23, 2022 Time Seen by Provider: 19:49 Initial Comments Patient is a 56-year-old female who presents ED flulike symptoms. Symptoms started around Saturday states she started having body aches chills started having nausea with few episodes of vomiting with diarrhea. She reports decreased appetite. Did not eat as much today. She reports headache. Took ibuprofen this morning. She states her grandson had similar symptoms who she has been around. Denies of any chest pain, abdominal pain, neck pain or urinary symptoms. She does report a cough but does smoke. She denies take any current medication. Patient is requesting COVID swab Allergies and Home Medications Allergies Coded Allergies: No Known Drug Allergies (Unverified , 06/09/12) Patient Home Medication List Home Medication List Reviewed: Yes Ibuprofen (Ibuprofen) 800 Mg Tablet, 800 MG PO Q8H PRN for PAIN-MILD, (Reported) Entered as Reported by: SABAS FRANCIS on 01/04/19 1418 Review of Systems Review of Systems Constitutional: chills; No diaphoresis; malaise, weakness EENTM: No ear pain, No blurred vision, No double vision Respiratory: cough Cardiovascular: No chest pain, No edema, No Hx of Intervention Gastrointestinal: No abdominal pain; diarrhea, nausea, vomiting Genitourinary: No decreased output, No discharge Musculoskeletal: No back pain, No joint pain Skin: No change in color, No change in hair/nails All Other Systems Reviewed Negative Unless Noted: Yes Past Uacdsmp-Emfygb-Pdcdbq Hx Immunizations Up To Date Tetanus Booster (TDap): Less than 5yrs Seasonal Allergies Seasonal Allergies: Yes Past Medical History Surgeries: Yes Section Respiratory: No Cardiac: No Neurological: No Reproductive Disorders: No DUPLICATING MACHINE OPERATOR History: Menopausal Genitourinary: Yes Kidney Stones Gastrointestinal: No Musculoskeletal: Yes (FX L PATELLA 01/15/14) Fractures Endocrine: No HEENT: No Cancer: No Psychosocial: No Integumentary: No Blood Disorders: No Family Medical History No Pertinent Family Hx, CAD Over 55 Years Old, Diabetes Physical Exam Vital Signs Vital Signs - First Documented 02/23/22 19:43 Temp 36.2 Pulse 105 Resp 20 B/P (MAP) 167/82 (110) Pulse Ox 96 Capillary Refill : Height, Weight, BMI Height: 5'6.00" Weight: 140lbs. 8.0oz. 63.280915eu; 20.9 BMI Method:Stated General Appearance: No Apparent Distress, WD/WN Eyes: Bilateral Eye Normal Inspection, Bilateral Eye PERRL, Bilateral Eye EOMI HEENT: PERRL/EOMI, TMs Normal, Normal ENT Inspection, Pharynx Normal Neck: Full Range of Motion, Normal Inspection, Non Tender Respiratory: Chest Non Tender, Lungs Clear, Normal Breath Sounds, No Accessory Muscle Use, No Respiratory Distress Cardiovascular: Regular Rate, Rhythm, No Edema, No Gallop, No JVD, Tachycardia Gastrointestinal: Normal Bowel Sounds, No Organomegaly, No Pulsatile Mass, Non Tender, Soft Extremity: Normal Capillary Refill, Normal Inspection, Normal Range of Motion, Non Tender, No Calf Tenderness Neurologic/Psychiatric: Alert, Oriented x3, No Motor/Sensory Deficits, Normal M ood/Affect, fire control officer II-XII Norm as Tested Skin: Normal Color, Warm/Dry Progress/Results/Core Measures Suspected Sepsis SIRS Temperature: Pulse: Respiratory Rate: Blood Pressure / Mean: Results/Orders Lab Results Laboratory Tests Test 02/23/22 19:48 Range/Units Influenza Type A (RT-PCR) Not Detected Not Detecte Influenza Type B (RT-PCR) Not Detected Not Detecte SARS-CoV-2 RNA (RT-PCR) Not Detected Not Detecte My Orders Orders - SHAZIA VARELA Covid 19 Inhouse Test (02/23/22 19:29) Influenza A And B By Pcr (02/23/22 19:29) Ondansetron Oral Dissolve Tab (Zofran (02/23/22 20:00) Acetaminophen Tablet (Tylenol Tablet) (02/23/22 20:00) Medications Given in ED Current Medications Medications Dose Ordered Sig/Al Route Start Time Stop Time Status Last Admin Dose Admin Acetaminophen 1,000 mg ONCE ONCE PO 02/23/22 20:00 02/23/22 20:01 DC 02/23/22 20:05 1,000 MG Ondansetron HCl 4 mg ONCE ONCE PO 02/23/22 20:00 02/23/22 20:01 DC 02/23/22 20:05 4 MG Vital Signs/I&O 02/23/22 19:43 Temp 36.2 Pulse 105 Resp 20 B/P (MAP) 167/82 (110) Pulse Ox 96 Capillary Refill : Departure Communication (PCP) Presents ED flulike symptoms. Patient has associated vomiting diarrhea. No specific chest pain, cough or shortness of breath. Patient was refusing lab work. She was requesting COVID which was negative. Negative for influenza. She was given oral Zofran per her request. Was tolerating p.o. fluids. She was afebrile but slightly tachycardic. She had no abdominal tenderness on palpation. Denies any urinary symptoms. She states family members have similar symptoms. Symptoms likely viral however if symptoms worsen she states she will return back to ED for further evaluation and lab work. She did have elevated blood pressure reading. Continue monitoring blood pressure. There was improvement 151/82. Currently asymptomatic. Tylenol ibuprofen at home. Recommend hydration. Impression Primary Impression: Viral syndrome Additional Impression: Elevated blood pressure reading Disposition: HOME, SELF-CARE Condition: Stable Departure-Patient Inst. Decision time for Depature: 20:23 Referrals: [facility] [place] NO,LOCAL PHYSICIAN (PCP) Primary Care Physician Patient Instructions: Viral Syndrome (DC) Add. Discharge Instructions: Continue treating conservatively with Tylenol ibuprofen. Recommend hydration. If any worsening symptoms return back to ED. All discharge instructions reviewed with patient and/or family. Voiced understanding. SHAZIA VARELA Feb 23, 2022 19:52
[2022-02-23] MEDS ORDERED: ACETAMINOPHEN 500 MG TAB (TYLENOL) PO ONE (20:00)
[2022-02-23] MEDS ORDERED: ONDANSETRON 4 MG (ZOFRAN) ORAL DISSOLVE TAB PO ONE (20:00)
[2022-02-23 20:50] VITALS: BP 151/96
== END 2022-02-23 20:50 | disposition home or self-care (01) ==
LOC: EDUNIT# 19:27 → ER 19:28
DX: B34.9 Viral infection, unspecified (principal); R03.0 Elevated blood-pressure reading, without diagnosis of hypertension; R00.0 Tachycardia, unspecified; Z20.822 Contact with and (suspected) exposure to COVID-19; Z28.310 Unvaccinated for COVID-19
CPT/HCPCS: 87636; 99283

== ENCOUNTER 2022-07-11 13:38 | Emergency (ER) | payer SELFPAY ==
[~2022-07-11] VITALS: Ht 167.7 cm; Wt 63.5 kg
--- NOTE | 2022-07-11 14:26 | ED Cough/URI ---
General Chief Complaint: Cough/Cold/Flu Symptoms Stated Complaint: CONGESTION | COUGH | Nursing Triage Note: PT AMB TO ED BY POV WITH C/O COUGH AND CONGESTION. PT REPORTS SX BEGAN OVER THE WEEKEND. DENIES N/V/D, FEVER, SOB, CP. REPORTS GENERAL ACHINESS AND FATIGUE. Source: patient Exam Limitations: no limitations History of Present Illness Date Seen by Provider: Jul 11, 2022 Time Seen by Provider: 14:21 Initial Comments This is a 57-year-old female who presented to the ER via POV with complaints of "flulike symptoms". She denies any sick past medical history, does not take any medications daily. Her symptoms started over the weekend "5 days ago". States that she began to feel better on Saturday this week however yesterday she began to have increasing cough and congestion and felt worse. She is not COVID vaccinated. No known ill contacts. Denies fever, shortness of breath, chest pain, nausea, vomiting, abdominal pain. Has generalized body aches and fatigue. Allergies and Home Medications Allergies Coded Allergies: No Known Drug Allergies (Unverified , 06/09/12) Patient Home Medication List Home Medication List Reviewed: Yes Guaifenesin/Codeine (Robitussin Ac (Codeine) Syrup) 10 Ml Syrp, 5 ML PO Q6H PRN for COUGH Prescribed by: MAXINE CHIU on 07/11/22 1539 Ibuprofen (Ibuprofen) 800 Mg Tablet, 800 MG PO Q8H PRN for PAIN-MILD, (Reported) Entered as Reported by: SABAS FRANCIS on 01/04/19 1418 Review of Systems Review of Systems Constitutional: see HPI Past Cbyndky-Pedvwy-Oubufm Hx Patient Social History Tobacco Use?: Yes Tobacco type used: Cigarettes Smoking Status: Current Everyday Smoker Use of E-Cig and/or Vaping dev: No Substance use?: No Alcohol Use?: No Pt feels they are or have been: No Immunizations Up To Date Tetanus Booster (TDap): Less than 5yrs Influenza Vaccine Up-to-Date: No; Not Current Seasonal Allergies Seasonal Allergies: Yes Past Medical History Surgery/Hospitalization HX: c sect Surgeries: Yes Section Respiratory: No Cardiac: No Neurological: No 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 8.0oz. 63.598156sr; 22.00 BMI Method:Stated General Appearance: WD/WN, no apparent distress Eyes: Bilateral Eye Normal Inspection, Bilateral Eye PERRL, Bilateral Eye EOMI HEENT: PERRL/EOMI, TMs normal Neck: full range of motion, normal inspection Respiratory: lungs clear, normal breath sounds, no respiratory distress, no accessory muscle use Cardiovascular: regular rate, rhythm, no murmur Gastrointestinal: normal bowel sounds, non tender, soft Extremities: normal range of motion, normal inspection, no calf tenderness, normal capillary refill Neurologic/Psychiatric: no motor/sensory deficits, alert, normal mood/affect, oriented x 3 Skin: normal color, warm/dry Progress/Results/Core Measures Suspected Sepsis SIRS Temperature: Pulse: 107 Respiratory Rate: 20 Blood Pressure 111 /86 Mean: 94 Results/Orders Lab Results Laboratory Tests Test 07/11/22 13:54 Range/Units Influenza Type A (RT-PCR) Not Detected Not Detecte Influenza Type B (RT-PCR) Not Detected Not Detecte SARS-CoV-2 RNA (RT-PCR) Not Detected Not Detecte My Orders Orders - MAXINE CHIU APRN Covid 19 Inhouse Test (07/11/22 14:01) Influenza A And B By Pcr (07/11/22 14:01) Chest 1 View, Ap/Pa Only (07/11/22 14:17) Vital Signs/I&O 07/11/22 07/11/22 13:50 13:50 Temp 36.6 Pulse 107 Resp 20 B/P (MAP) 111/86 (94) Pulse Ox 96 O2 Delivery Room Air Room Air Capillary Refill : Less Than 3 Seconds Blood Pressure Mean: 94 Progress Note : Progress Note Patient examined and no acute distress. Will obtain COVID and FLU swabs, patient verbalized concerns for pneumonia, will add 1 View CXR. Departure Impression Primary Impression: Bronchitis Disposition: 01 HOME, SELF-CARE Condition: Improved Departure-Patient Inst. Decision time for Depature: 15:37 Referrals: NO,LOCAL PHYSICIAN (PCP/Family) Primary Care Physician Patient Instructions: Bronchitis, Adult ED Add. Discharge Instructions: Plan: 1. Follow-up with a primary care provider of your choice to establish care. 2. Return for any new, concerning, worsening symptoms. 3. Take cough syrup as directed, may cause drowsiness do not drive or work while taking. All discharge instructions reviewed with patient and/or family. Voiced understanding. Scripts Guaifenesin/Codeine (ROBITUSSIN AC (CODEINE) SYRUP) 10 Ml Syrp 5 ML PO Q6H PRN for COUGH, #60 ML 0 Refills Prov: MAXINE CHIU RADIATOR MECHANIC 07/11/22 Work/School Note: School/Childcare Release Date Seen in the Emergency Department: Jul 11, 2022 Time Dismissed from Emergency Department: 15:41 Return to School: Jul 11, 2022 MAXINE CHIU RADIATOR MECHANIC Jul 11, 2022 14:26
--- NOTE | 2022-07-11 14:55 | Diagnostic Imaging Report ---
INDICATION: Cough and congestion. Frontal chest obtained at 0230 p.m. Heart and mediastinal silhouette are normal in appearance. The lungs are clear. There is no pneumothorax or pleural fluid. IMPRESSION: Negative chest. Dictated by: Dictated on workstation # [id number]
[2022-07-11] MEDS ORDERED: GFCD10B PO (15:39)
[2022-07-11 15:45] VITALS: BP 117/80
== END 2022-07-11 15:45 | disposition home or self-care (01) ==
LOC: EDUNIT# 13:38 → ER 13:42
DX: J40 Bronchitis, not specified as acute or chronic (principal); F17.210 Nicotine dependence, cigarettes, uncomplicated; Z20.822 Contact with and (suspected) exposure to COVID-19; Z28.310 Unvaccinated for COVID-19
CPT/HCPCS: 71045; 87636

== ENCOUNTER 2022-10-24 18:19 | Emergency (ER) | payer SELFPAY ==
[~2022-10-24] VITALS: Ht 167 cm; Wt 68.0 kg
[~2022-10-24 18:19] MED LIST changes: +GFCD10B PO
--- NOTE | 2022-10-24 18:57 | ED Upper Extremity ---
General Chief Complaint: Upper Extremity Stated Complaint: RIGHT ARM PAIN Nursing Triage Note: Patient ambulatory to ER with c/o right lower arm pain. Patient states she was out walking about an hr ago and tried catching herself on her right arm. Source: patient Exam Limitations: no limitations History of Present Illness Date Seen by Provider: Oct 24, 2022 Time Seen by Provider: 18:56 Initial Comments Patient is a 57-year-old female who presents ED with right arm pain. Patient fell 1 hour ago. She was outside tripped and fell and landed on extended out right hand. She had immediate pain with bruising swelling to the right distal wrist. Mild deformity. Not able to make a fist. Denies taking thing for pain at home. No history of previous trauma to the wrist. Denies of any hand pain, elbow pain, head injury Allergies and Home Medications Allergies Coded Allergies: No Known Drug Allergies (Unverified , 06/09/12) Patient Home Medication List Home Medication List Reviewed: Yes Guaifenesin/Codeine (Robitussin Ac (Codeine) Syrup) 10 Ml Syrp, 5 ML PO Q6H PRN for COUGH Prescribed by: MAXINE CHIU on 07/11/22 1539 Hydrocodone/Acetaminophen (Hydrocodone-Acetamin 5-325 mg) 5 Mg-325 Mg Tablet, 1 TAB PO Q4H PRN for PAIN-MODERATE (5-7) Prescribed by: JASMINE MCKEON on 10/24/22 194 Ibuprofen (Ibuprofen) 800 Mg Tablet, 800 MG PO Q8H PRN for PAIN-MILD, (Reported) Entered as Reported by: SABAS FRANCIS on 01/04/19 1418 Review of Systems Constitutional: No chills, No diaphoresis, No fever, No malaise, No weakness EENTM: No blurred vision, No double vision, No dental problems, No mouth pain, No mouth swelling Cardiovascular: No chest pain Gastrointestinal: No abdominal pain, No diarrhea, No nausea, No vomiting Genitourinary: No decreased output, No discharge Musculoskeletal: No back pain; joint pain, joint swelling, muscle pain Skin: No change in color, No change in hair/nails All Other Systems Reviewed Negative Unless Noted: Yes Past Kdvsgxu-Vofmvh-Edeyus Hx Patient Social History Tobacco Use?: Yes Tobacco type used: Cigarettes Smoking Status: Current Everyday Smoker Substance use?: No Alcohol Use?: No Immunizations Up To Date Tetanus Booster (TDap): Less than 5yrs Seasonal Allergies Seasonal Allergies: Yes Past Medical History Surgery/Hospitalization HX: c sect Surgeries: Yes Section Respiratory: No Cardiac: No Neurological: No 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 8.0oz. 63.319558ix; 24.00 BMI Method:Stated General Appearance: WD/WN, no apparent distress HEENT: PERRL/EOMI, normal ENT inspection, TMs normal, pharynx normal Neck: non-tender, full range of motion, supple Cardiovascular: regular rate, rhythm, no edema, no gallop, no JVD Respiratory: chest non-tender, lungs clear, normal breath sounds, no respiratory distress, no accessory muscle use Gastrointestinal: normal bowel sounds, non tender, soft, no organomegaly Back: normal inspection, no vertebral tenderness Shoulder: normal inspection, non-tender, no evidence of injury, normal ROM Elbow/Forearm: normal inspection, non-tender, no evidence of injury Wrist: Yes pain (Right distal radius and ulna with limited active range of passive range of motion. Mild deformity. 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 Neurovascularly intact pre and post splint. No evidence compartment syndrome. Sling was provided. Pre-Procedure NV Exam: Yes Heath wrap: Yes Hand-Made Type: orthoglass Splint Application: Short Arm Progress/Results/Core Measures Results/Orders My Orders Orders - SHAZIA VARELA Wrist, Right, 3 Views Or More (10/24/22 18:55) Hydrocodone/Apap 5/325 Tablet (Lortab 5 (10/24/22 19:00) Medications Given in ED Current Medications Medications Dose Ordered Sig/Al Route Start Time Stop Time Status Last Admin Dose Admin Acetaminophen/ Hydrocodone Bitart 1 ea ONCE ONCE PO 10/24/22 19:00 10/24/22 19:01 DC 10/24/22 19:09 1 EA Vital Signs/I&O 10/24/22 18:41 Temp 36.4 Pulse 89 Resp 22 B/P (MAP) 145/75 (98) Pulse Ox 100 O2 Delivery Room Air Blood Pressure Mean: 98 Departure Communication (PCP) Reviewed previous ER visits, H&P, lab testing. Patient with a mechanical fall landing on extended out right hand. Complaining of distal radius and ulna pain. Slight deformity. Neurovascular intact. No evidence of compartment syndrome. Initial x-ray reviewed by myself shows a comminuted impacted right distal radial fracture. Distal displaced ulnar styloid fracture. Radiologist did agree and noted fracture lines extending into the radiocarpal joint space of the right distal radius. Slightly displaced ulnar styloid fracture. Neurovascular intact. Patient Was placed in a sugar-tong splint. Patient was given a dose of pain medication. Will discharge with pain medication. Orthopedic follow-up in 7 to 10 days. Neurovascular intact pre and post splint. Patient will be discharged with strict return precautions. Discussed return precautions such as increased redness, pain or swelling distally Impression Primary Impression: Wrist fracture Disposition: 01 HOME, SELF-CARE Condition: Stable Departure-Patient Inst. Decision time for Depature: 19:44 Referrals: NO,LOCAL PHYSICIAN (PCP) Primary Care Physician LUIS ENRIQUE HUYNH MD, MICHAEL P MD Patient Instructions: Wrist Fracture (DC) Scripts Hydrocodone/Acetaminophen (Hydrocodone-Acetamin 5-325 mg) 5 Mg-325 Mg Tablet 1 TAB PO Q4H PRN for PAIN-MODERATE (5-7), #14 TAB Prov: SHAZIA VARELA 10/24/22 SHAZIA VARELA Oct 24, 2022 18:57
[2022-10-24] MEDS ORDERED: HYDROcodone/APAP 5 MG/325 MG (LORTAB) TAB PO ONE (19:00)
--- NOTE | 2022-10-24 19:20 | Diagnostic Imaging Report ---
INDICATION: 57-year-old female with right wrist pain, injured in fall. COMPARISON: None. FINDINGS: Three views of the right wrist show an impacted and comminuted right distal radial fracture with the fascial lines extending into the radiocarpal joint space. There is also an ulnar styloid fracture which is slightly displaced. IMPRESSION: Comminuted and impacted right distal radial fracture with fracture lines extending into the radiocarpal joint space. There is a slightly displaced ulnar styloid fracture. Dictated by: Dictated on workstation # [id number]
[2022-10-24] MEDS ORDERED: ACHD5005 PO (19:44)
[2022-10-24 20:04] VITALS: BP 145/75
== END 2022-10-24 20:04 | disposition home or self-care (01) ==
LOC: EDUNIT# 18:19 → ER 18:20
DX: S52.501A Unspecified fracture of the lower end of right radius, initial encounter for closed fracture (principal); S52.611A Displaced fracture of right ulna styloid process, initial encounter for closed fracture; F17.210 Nicotine dependence, cigarettes, uncomplicated; Z28.310 Unvaccinated for COVID-19; W01.0XXA Fall on same level from slipping, tripping and stumbling without subsequent striking against object, initial encounter; Y93.01 Activity, walking, marching and hiking
CPT/HCPCS: 29125; 73110

== ENCOUNTER → 2022-11-13 | Outpatient (CLI) | payer OTHER ==
[~2022-11-13] MED LIST changes: +ACHD5005 PO
== END ==
LOC: ORTHO 15:24
PROVIDERS: ATTEND Orthopaedic Surgery
DX: S52.501A Unspecified fracture of the lower end of right radius, initial encounter for closed fracture (principal); X58.XXXA Exposure to other specified factors, initial encounter
CPT/HCPCS: 99203

== ENCOUNTER 2022-11-14 05:51 | Outpatient (CLI) | payer SELFPAY ==
[~2022-11-14] VITALS: Ht 165.1 cm; Wt 77.6 kg
[2022-11-16] MEDS ORDERED: ACHD5005 PO (09:07)
== END 2022-11-15 09:45 | disposition home or self-care (01) ==
LOC: PREOP 05:51
PROVIDERS: ATTEND Orthopaedic Surgery
DX: Z01.818 Encounter for other preprocedural examination (principal); S52.501A Unspecified fracture of the lower end of right radius, initial encounter for closed fracture; X58.XXXA Exposure to other specified factors, initial encounter

== ENCOUNTER 2022-11-16 06:37 | Day surgery (SDC) | payer OTHER ==
[~2022-11-16] VITALS: Ht 165.1 cm; Wt 77.6 kg
[2022-11-16] VITALS (15 sets, daily range): BP systolic 149–182; BP diastolic 73–99
[2022-11-16] MEDS ORDERED: ceFAZolin INJECTION 2,000 MG in NS (IVPB) 50 ML IV ONE (06:45)
[2022-11-16] MEDS: LACTATED RINGERS 1,000 ML IV PRN ×2 (06:59→08:15)
[2022-11-16] MEDS ORDERED: ONDANSETRON 4 MG/2 ML (SDV) Z0FRAN ONE (07:10)
[2022-11-16] MEDS ORDERED: proPOfol 200 MG/20 ML (DIPRIVAN) VIAL IV ONE (07:10)
[2022-11-16] MEDS ORDERED: LIDOCAINE PF 2% 5 ML (XYLOCAINE) VIAL ONE (07:10)
[2022-11-16] MEDS ORDERED: fentaNYL INJ 100 MCG/2 ML AMP ONE (07:11)
[2022-11-16] MEDS ORDERED: MIDAZOLAM 2 MG/2 ML (VERSED) VIAL ONE (07:11)
[2022-11-16] MEDS ORDERED: BUPIVACAINE 0.25% 30 ML (SENSORCAINE) VIAL ONE (07:17)
[2022-11-16] MEDS ORDERED: morphine INJ 10 MG/ML 1ML (SYR OR VIAL) IVP ONE (07:30)
[2022-11-16] MEDS ORDERED: ONDANSETRON 4 MG/2 ML (SDV) Z0FRAN IVP PRN (07:30)
[2022-11-16] MEDS ORDERED: HYDROmorphone 2 MG/ML VIAL (DILAUDID) IV ONE (07:30)
--- NOTE | 2022-11-16 07:42 | Progress Note-Pre Operative ---
Pre-Operative Progress Note Date of Available H&P: Nov 13, 2022 Date H&P Reviewed: Nov 16, 2022 Time H&P Reviewed: 07:35 History & Physical: H&P Reviewed, Patient Examed, No changes noted Pre-Operative Diagnosis: Right Intraarticular Distal Radius Fracture LUIS ENRIQUE HUYNH MD Nov 16, 2022 07:42
[2022-11-16] MEDS ORDERED: BUPIVACAINE 0.25% 30 ML (SENSORCAINE) VIAL INJ ONE (08:04)
[2022-11-16] MEDS ORDERED: HYDROmorphone 2 MG/ML VIAL (DILAUDID) ONE (08:36)
[2022-11-16] MEDS ORDERED: SEVOFLURANE (ULTANE) 15 ML INHAL SOLN ONE (08:43)
--- NOTE | 2022-11-16 09:05 | Operative Report - Ortho ---
Operative Report Surgeon (s)/Member Service Specialist (s) Surgeon LUIS ENRIQUE HUYNH MD Member Service Specialist n/a Pre-Operative Diagnosis Right Intraarticular Distal Radius Fracture Post-Operative Diagnosis same Operative Report Date of Procedure: Nov 16, 2022 Name of Procedure Performed: Open Reduction and Internal Fixation of Right Intraatricular Distal Radius Fracture Description & Findings After obtaining informed consent, the patient was taken to the operating room. General anesthesia was induced. Surgical timeout was taken. The right upper extremity was prepped and draped in the usual sterile fashion. Incision was made over the volar side of the wrist. Radial artery was identified and protected. Fascia was divided, retractors were placed, and the pronator was reflected. Fracture site was exposed. Fracture site was mobilized. Reduction maneuver was performed using traction, wrist flexion, and ulnar deviation. A [employer] distal radius plate was selected and position against the bone using C- arm. A nonlocking screw was placed in the slot of the plate. A nonlocking screw was then placed in the most distal row of the plate. Plate position and reduction were confirmed in the AP and lateral planes. An ulnar sided locking screw was placed in the distal row followed by the ulnar sided locking screw in the 2nd row. C-arm was once again utilized and noted to have good position of hardware with maintained reduction of fracture. 2 locking screws were then placed in the radial styloid position. Nonlocking screw distally was switched for a locking screw. 2 locking screws were placed in the diaphyseal portion of the plate. The nonlocking screw in the diaphysis was switched to a shorter screw. Images were obtained in the AP, and lateral and demonstrated adequate reduction of the fracture with reduction of the intrarticular segment, and appropriate position of the hardware. Final images were sent to PACS. Wound was irrigated with normal saline. Subcutaneous layer was closed with 3-0 vicryl. Skin was closed with 4-0 nylon. Wound was injected locally with marcaine. Arm was dressed with xeroform, 4x4s, webril, volar splint, and SHEILA wrap. Patient tolerated the procedure well and was stable to the recovery room. Anesthesia Type General Estimated Blood Loss minimal Specimen(s) collected/removed None LUIS ENRIQUE HUYNH MD Nov 16, 2022 09:05
[2022-11-16] MEDS ORDERED: ACHD5005 PO (09:07)
--- NOTE | 2022-11-16 11:56 | Anesthesia-General Post-Op ---
General Patient Condition Mental Status/LOC: Same as Preop Cardiovascular: Satisfactory Nausea/Vomiting: Absent Respiratory: Satisfactory Pain: Controlled Complications: Absent Post Op Complications Complications None Follow Up Care/Instructions Patient Instructions None needed. Anesthesia/Patient Condition Patient Condition Patient is doing well in SDC. She currently down to oxygen at 1 l/min via nasal cannula. She returned to [facility] from PACU on 3 l/min. She not C/O pain or nausea. Joseline will continue to wean down her O2 requirement before she is discharged to home. No apparent adverse anesthesia problems and no complications reported per nursing. TAO BROWN DO Nov 16, 2022 11:56
--- NOTE | 2022-11-16 12:29 | Diagnostic Imaging Report ---
Result: History: 57 years-old Female with radius fracture, ORIF Technique: 2 intraoperative fluoroscopic images of the right wrist in the frontal and lateral projections. Fluoroscopic Time: 31.3 seconds Findings: Intraoperative fluoroscopic images were obtained during internal fixation of the distal radius fracture with a volar plate and multiple screws. Impression: Fluoroscopic intraoperative images obtained during internal fixation of the right radius fracture. Dictated by: Dictated on workstation # [id number]
== END 2022-11-16 13:30 | disposition home or self-care (01) ==
LOC: SDC 06:37
PROVIDERS: ATTEND Orthopaedic Surgery
DX: S52.571A Other intraarticular fracture of lower end of right radius, initial encounter for closed fracture (principal); F17.210 Nicotine dependence, cigarettes, uncomplicated; W18.30XA Fall on same level, unspecified, initial encounter
CPT/HCPCS: 25609; 76000; 87081; C1713 ×6

== ENCOUNTER → 2022-11-28 | Outpatient (CLI) | payer OTHER | LOC: ORTHO 09:47 | PROVIDERS: ATTEND Orthopaedic Surgery | DX: Z47.89 Encounter for other orthopedic aftercare (principal) ==